=== PATIENT | female | born 1945 | race Caucasian/White ===

== ENCOUNTER → 2016-11-21 | Outpatient (CLI) | payer MEDICARE | END | disposition home or self-care (01) | LOC: PETCFH 08:13 | PROVIDERS: ATTEND Nurse Practitioner Primary Care | DX: R10.13 Epigastric pain (principal); R07.9 Chest pain, unspecified; E03.9 Hypothyroidism, unspecified; E78.2 Mixed hyperlipidemia; I10 Essential (primary) hypertension; K21.9 Gastro-esophageal reflux disease without esophagitis; F06.4 Anxiety disorder due to known physiological condition | CPT/HCPCS: 78227; A9537 ==

== ENCOUNTER → 2017-09-10 | Outpatient (CLI) | payer MEDICARE | END | disposition home or self-care (01) | LOC: CFH 12:53 | PROVIDERS: ATTEND Nurse Practitioner Primary Care | DX: M81.0 Age-related osteoporosis without current pathological fracture (principal); M85.88 Other specified disorders of bone density and structure, other site; Z78.0 Asymptomatic menopausal state | CPT/HCPCS: 77080 ==

== ENCOUNTER 2017-12-09 22:33 | Observation (INO) | payer MEDICARE ==
[~2017-12-09] VITALS: Ht 154.9 cm; Wt 61.7 kg
[2017-12-10 00:28] LABS: BASOPHILS # (AUTO) 0.07 x10^3/uL (0-0.1); BASOPHILS % (AUTO) 1 % (0-1); EOSINOPHILS # (AUTO) 0.47 x10^3/uL (0-0.4); EOSINOPHILS % (AUTO) 7 % (1-7); LYMPHOCYTES # (AUTO) 2.27 x10^3/uL (1-3.4); LYMPHOCYTES % (AUTO) 32 % (22-44); MD NO; MEAN CORPUSCULAR HEMOGLOBIN 29.4 pg (27.0-34.8); MEAN CORPUSCULAR HGB CONC 33.5 g/dL (32.4-35.8); MEAN CORPUSCULAR VOLUME 87.8 fL (80-100); MEAN PLATELET VOLUME 9.4 fL (7.4-10.4); MONOCYTES # (AUTO) 0.66 x10^3/uL (0.2-0.8); MONOCYTES % (AUTO) 9 % (2-9); NEUTROPHILS # (AUTO) 3.67 x10^3/uL (1.8-6.8); NEUTROPHILS % (AUTO) 51 % (42-75); PLATELET COUNT 155 x10^3/uL (130-400); RED BLOOD COUNT 4.61 x10^6/uL (3.82-5.3)
[2017-12-10 00:36] LABS: ANION GAP 5 mmol/L (5-15); CALCIUM 9.1 mg/dL (8.5-10.1); CHLORIDE 115 mmol/L (98-107); CREATININE 0.99 mg/dL (0.55-1.02)
[2017-12-10 00:39] LABS: TROPONIN I < 0.015 ng/mL (0.000-0.045)
[2017-12-10] MEDS ORDERED: ASPIRIN 81 MG TABLET CHEW ONE (01:50)
[2017-12-10] MEDS ORDERED: ASPIRIN 81 MG TABLET CHEW PO ONE (02:00)
[2017-12-10] MEDS ORDERED: CARV3.12 PO (02:01)
[2017-12-10] MEDS ORDERED: ASPI-496 PO (02:02)
[2017-12-10] MEDS ORDERED: LEVO200V10 PO (02:03)
[2017-12-10] MEDS ORDERED: PANT40GR PO (02:04)
[2017-12-10 02:42] VITALS: BP 149/78
[2017-12-10] MEDS ORDERED: CARV3.122 PO (02:49)
[2017-12-10] MEDS ORDERED: NITR0.4T28 SL (03:04)
[2017-12-10] MEDS ORDERED: LEVO50TA5 PO (03:04)
[2017-12-10] MEDS ORDERED: OMEP40CA6 PO (03:04)
[2017-12-10] MEDS ORDERED: ATOR80TA PO (03:04)
[2017-12-10] MEDS ORDERED: CHOL5000 PO (03:04)
[2017-12-10] MEDS ORDERED: EZET10TA18 PO (03:04)
[2017-12-10] MEDS ORDERED: CALC-545 PO (03:04)
[2017-12-10] MEDS ORDERED: ACETAMINOPHEN 325 MG TABLET PO ONE (04:00)
[2017-12-10] MEDS ORDERED: morphine SULFATE 10 MG/ML, 1ML IV PRN (04:30)
[2017-12-10] MEDS ORDERED: NITROGLYCERIN 0.4 MG BOTTLE (25 TABS) SL PRN (04:30)
[2017-12-10] MEDS ORDERED: NITROGLYCERIN 0.4 MG/SPRAY SL PRN (04:30)
[2017-12-10] MEDS ORDERED: OMEPRAZOLE 20 MG CAPSULE.DR PO PRN (04:30)
[2017-12-10] MEDS ORDERED: BISACODYL 10 MG SUPP PR PRN (04:30)
[2017-12-10 05:30] LABS: CHOL/HDL RATIO 2.6; CHOLESTEROL, TOTAL 131 mg/dL (140-239); HDL CHOL % 39 % (28-40); HDL CHOLESTEROL (DIRECT) 51 mg/dL (40-60); TRIGLYCERIDES 113 mg/dL (50-200); VLDL CHOLESTEROL 23 mg/dL (0-25)
[2017-12-10 05:31] LABS: LDL CHOLESTEROL,CALCULATED 57 mg/dL (54-169); LDL/HDL RATIO 1.1 (0.5-3.0); TROPONIN I < 0.015 ng/mL (0.000-0.045)
[2017-12-10] MEDS ORDERED: OMNIPAQUE 350 MG/ML, 100ML BOTTLE ONE (06:20)
[2017-12-10 06:23] VITALS: BP 135/78
[2017-12-10] MEDS: HEPARIN 5,000 UNITS/ML, 1ML SQ SCH ×2 (06:28→14:20)
[2017-12-10] MEDS ORDERED: LEVOTHYROXINE 50 MCG TABLET PO SCH (07:30)
[2017-12-10 07:47] LABS: TROPONIN I < 0.015 ng/mL (0.000-0.045)
[2017-12-10] MEDS ORDERED: CALCIUM/VITAMIN D3 250-125 TABLET PO SCH (09:00)
[2017-12-10] MEDS ORDERED: EZETIMIBE 10 MG TABLET PO SCH (09:00)
[2017-12-10] MEDS ORDERED: SODIUM CHLORIDE FLUSH 10ML SYR IVF SCH (09:00)
[2017-12-10] MEDS ORDERED: ASPIRIN 81 MG TABLET EC PO SCH (09:00)
[2017-12-10] MEDS ORDERED: PANTOPRAZOLE GRAN. PKT 40 MG PO SCH (09:00)
[2017-12-10] MEDS ORDERED: CARVEDILOL 3.125 MG TABLET PO SCH (09:00)
[2017-12-10] MEDS ORDERED: CHOLECALCIFEROL 1,000 UNIT TABLET PO SCH (09:00)
[2017-12-10] MEDS ORDERED: REGADENOSON 0.4 MG/5 ML SYRINGE ONE (10:16)
[2017-12-10 13:24] VITALS: BP 105/70
[2017-12-10] MEDS ORDERED: ATORVASTATIN 80 MG TABLET PO SCH (21:00)
== END 2017-12-10 16:35 | disposition home or self-care (01) ==
LOC: ED 23:59 → INTOOBSV 12-10 01:39 → EDIP 12-10 01:39 → 5SO 12-10 02:38 → DCLOUNGE 12-10 16:20
PROVIDERS: ADMIT Family Medicine; ATTEND Family Medicine
DX: R07.89 Other chest pain (principal); E78.5 Hyperlipidemia, unspecified; E03.9 Hypothyroidism, unspecified; I25.10 Atherosclerotic heart disease of native coronary artery without angina pectoris; Z90.710 Acquired absence of both cervix and uterus; Z95.5 Presence of coronary angioplasty implant and graft; Z87.891 Personal history of nicotine dependence
CPT/HCPCS: 36415; 71045; 71275; 78452; 80048; 80061; 82040; 84484; 85025; 93005; 93017; 96372; 99285; A9502; C9898; G0378; J1644; Q9967; J2785

== ENCOUNTER → 2018-04-30 | Outpatient (CLI) | payer MEDICARE ==
[~2018-04-30] MED LIST: ASPI-496 PO; ATOR80TA PO; CALC-545 PO; CARV3.12 PO; CARV3.122 PO; CHOL5000 PO; EZET10TA18 PO; LEVO200V10 PO; LEVO50TA5 PO; NITR0.4T28 SL; OMEP40CA6 PO; PANT40GR PO
== END | disposition home or self-care (01) ==
LOC: CFH 09:30
PROVIDERS: ATTEND Internal Medicine Cardiovascular Disease
DX: I08.0 Rheumatic disorders of both mitral and aortic valves (principal); I25.119 Atherosclerotic heart disease of native coronary artery with unspecified angina pectoris; I25.2 Old myocardial infarction; I10 Essential (primary) hypertension; E78.5 Hyperlipidemia, unspecified
CPT/HCPCS: 93306

== ENCOUNTER 2018-11-02 10:08 | Emergency (ER) | payer MEDICARE ==
[~2018-11-02] VITALS: Ht 154.9 cm; Wt 61.4 kg
[2018-11-02 12:18] VITALS: BP 117/68
== END 2018-11-02 13:03 | disposition home or self-care (01) ==
LOC: ED 12:02
DX: J01.01 Acute recurrent maxillary sinusitis (principal); R51 Headache; R53.1 Weakness; M79.662 Pain in left lower leg; M79.661 Pain in right lower leg; E78.5 Hyperlipidemia, unspecified; Z95.5 Presence of coronary angioplasty implant and graft; R07.9 Chest pain, unspecified
CPT/HCPCS: 36415; 71046; 80053; 83605; 84145; 85025; 87040; 93970; 99284

== ENCOUNTER → 2019-09-23 | Outpatient (CLI) | payer MEDICARE ==
[~2019-09-23] MED LIST changes: -EZET10TA18 PO; +EZET10TA70 PO; +OMEP40CA42 PO; -OMEP40CA6 PO; +OMNIPAQUE 350 MG/ML, 100ML BOTTLE ONE
== END | disposition home or self-care (01) ==
LOC: CFH 09:43
PROVIDERS: ATTEND Nurse Practitioner Primary Care
DX: K76.0 Fatty (change of) liver, not elsewhere classified (principal); K57.30 Diverticulosis of large intestine without perforation or abscess without bleeding; K76.89 Other specified diseases of liver; I70.0 Atherosclerosis of aorta; K68.9 Other disorders of retroperitoneum; M51.36 Other intervertebral disc degeneration, lumbar region
CPT/HCPCS: 74177; 82565; Q9967

== ENCOUNTER → 2019-11-29 | Outpatient (CLI) | payer MEDICARE ==
[~2019-11-29] MED LIST changes: -OMNIPAQUE 350 MG/ML, 100ML BOTTLE ONE; +REGADENOSON 0.4 MG/5 ML SYRINGE ONE
== END | disposition home or self-care (01) ==
LOC: CFH 06:57
PROVIDERS: ATTEND Internal Medicine Cardiovascular Disease
DX: I08.3 Combined rheumatic disorders of mitral, aortic and tricuspid valves (principal); I25.119 Atherosclerotic heart disease of native coronary artery with unspecified angina pectoris; I10 Essential (primary) hypertension
CPT/HCPCS: 78452; 93017; 93306; A9502; J2785

== ENCOUNTER → 2020-04-05 | Outpatient (CLI) | payer MEDICARE ==
[~2020-04-05] MED LIST changes: -CALC-545 PO; +CALC-780 PO; +GADOTERATE 7.5 MMOL/15 ML VIAL ONE; -REGADENOSON 0.4 MG/5 ML SYRINGE ONE
== END | disposition home or self-care (01) ==
LOC: RAD 10:15
PROVIDERS: ATTEND Nurse Practitioner Primary Care
DX: N28.1 Cyst of kidney, acquired (principal); N28.89 Other specified disorders of kidney and ureter; R93.429 Abnormal radiologic findings on diagnostic imaging of unspecified kidney
CPT/HCPCS: 74183; A9575